=== PATIENT | male | born 1955 | race Caucasian/White ===

== ENCOUNTER → 2016-10-01 | Outpatient (CLI) | payer OTHER | END | disposition home or self-care (01) | LOC: GMAM 10:01 | PROVIDERS: ATTEND Family Medicine | DX: E29.9 Testicular dysfunction, unspecified (principal) ==

== ENCOUNTER → 2016-10-20 | Outpatient (CLI) | payer OTHER | END | disposition home or self-care (01) | LOC: GMAM 14:27 | PROVIDERS: ATTEND Family Medicine | DX: R94.5 Abnormal results of liver function studies (principal) ==

== ENCOUNTER → 2016-10-21 | Outpatient (CLI) | payer OTHER ==
--- NOTE | 2016-10-21 16:44 | US ---
EXAM DESCRIPTION: Liver CLINICAL HISTORY: ELEVATED LFTS COMPARISON: CT abdomen and pelvis 03/27/2015. TECHNIQUE: Transabdominal scannin-dimensional and Doppler modes. Technically difficult study due to patient body habitus and bowel gas. FINDINGS: The gallbladder is normal in size, shape, and echogenicity, with no intraluminal stones or sludge. No fluid around the gallbladder. No wall thickening. 1.7 mm. Common bile duct caliber is 4.5 mm which is within normal limits. . No stones in the visualized portion of the duct. Not tender with transducer pressure. The liver demonstrates increased echogenicity; contour of the liver capsule is smooth where seen. No fluid around the liver. Intrahepatic biliary ducts are non-dilated. Craniocaudal dimension in the mid-clavicular axis is 17.2 cm. Pancreas head, body, tail normal in size; increased echogenicity. Pancreatic duct is not dilated. Normal Doppler vascularity in the christina hepatis. Abdominal aorta proximal diameter. IVC visualized and normal caliber. Right kidney not well seen. IMPRESSION: 1. Technically difficult study due to bowel gas and patient large body habitus. 2. Fatty pancreas but not enlarged. Mild hepatomegaly with fatty infiltration. This can be related to obesity and a variety of metabolic and toxic conditions. No ascites. 3. Normal gallbladder and common bile duct. Right kidney was not well seen. Electronically signed by: Semaj Villa MD 10/21/2016 4:39 PM CDT Workstation: [id number]
== END | disposition home or self-care (01) ==
LOC: US 09:02
PROVIDERS: ATTEND Family Medicine
DX: R94.5 Abnormal results of liver function studies (principal); R05 Cough

== ENCOUNTER → 2017-05-25 | Outpatient (CLI) | payer SELFPAY | LOC: GMAM 10:46 | PROVIDERS: ATTEND Family Medicine | DX: E29.9 Testicular dysfunction, unspecified (principal); Z12.5 Encounter for screening for malignant neoplasm of prostate ==

== ENCOUNTER → 2018-08-26 | Outpatient (CLI) | payer BC | LOC: GMAM 12:24 | PROVIDERS: ATTEND Family Medicine | DX: Z12.5 Encounter for screening for malignant neoplasm of prostate (principal); E29.9 Testicular dysfunction, unspecified ==